=== PATIENT | male | born 1965 | race Caucasian/White ===

== ENCOUNTER 2018-01-28 13:02 | Emergency (ER) | payer SELFPAY ==
[~2018-01-28] VITALS: Ht 170.2 cm; Wt 79.0 kg
[2018-01-28] MEDS ORDERED: METF-816 PO (13:12)
[2018-01-28] MEDS ORDERED: MORPHINE SULFATE 4 MG/ML CPJ (NOT FOR IM USE) IV STA (13:24)
[2018-01-28 16:16] VITALS: BP 121/67
== END 2018-01-28 16:55 | disposition home or self-care (01) ==
LOC: ER 13:16
DX: S52.572A Other intraarticular fracture of lower end of left radius, initial encounter for closed fracture (principal); S52.615A Nondisplaced fracture of left ulna styloid process, initial encounter for closed fracture; E11.9 Type 2 diabetes mellitus without complications; Z79.84 Long term (current) use of oral hypoglycemic drugs; W11.XXXA Fall on and from ladder, initial encounter; Y93.89 Activity, other specified; Y92.89 Other specified places as the place of occurrence of the external cause; Y99.8 Other external cause status
CPT/HCPCS: 29105; 72125; 73070; 73100; 73552; 73590; 96374; 99284; J2270; J7040; A4565